=== PATIENT | male | born 1975 | race Caucasian/White ===

== ENCOUNTER 2017-06-03 17:53 | Emergency (ER) | payer SELFPAY ==
[~2017-06-03] VITALS: Ht 162.6 cm; Wt 68.0 kg
[2017-06-03 18:04] VITALS: BP 123/76
[2017-06-03] MEDS ORDERED: cefTRIAXone 1,000 MG in LIDOCAINE MPF 1% - **ER/OR** 2.1 ML IM ONE (18:45)
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
--- NOTE | 2017-06-03 19:05 | NUR ---
ALEJANDRO WILLIS NOTIFIED OF URINE COLLECTED FOR TEST
[2017-06-03 19:32] VITALS: BP 100/89
--- NOTE | 2017-06-03 19:32 | NUR ---
Patient discharged with v/s stable PER DR. MATHEWS. Written and verbal after care instructions given and explained PER DR MATHEWS. Patient alert, oriented and verbalized understanding of instructions. Ambulatory with steady gait. All questions addressed prior to discharge by Dr. Mathews. ID band removed. Patient advised to follow up with PMD. Rx of given. Doxycycline 100 mg and levaquin 500 mg. Patient educated on indication of medication including possible reaction and side effects. Opportunity to ask questions provided and answered.
[2017-06-06 06:28] LABS: CHLAMYDIA TRACHOMATIS AMP DNA Negative (Negative)
== END 2017-06-03 19:32 | disposition home or self-care (01) ==
LOC: MED 17:53
DX: A64 Unspecified sexually transmitted disease (principal)
CPT/HCPCS: 36415; 96372; 99283; J0696; J2001; 87491

== ENCOUNTER 2018-12-28 19:06 | Emergency (ER) | payer SELFPAY ==
[~2018-12-28] VITALS: Ht 167.6 cm; Wt 63.5 kg
[2018-12-28 19:10] VITALS: BP 120/68
--- NOTE | 2018-12-28 19:16 | NUR ---
Patient ambulated to bed 8 with family. RN evaluating patient at bedside.
--- NOTE | 2018-12-28 19:30 | NUR ---
Dr. Abacra evaluating patient at bedside.
--- NOTE | 2018-12-28 19:33 | NUR ---
43/M PRESENTS TO ED, C/O BUMP ON L POST AURICULAR REGION, REPORTS PAIN ON BL SIDES OF NECK. ALSO C/O EPIGASTRIC PAIN, X1 DAY. REPORTS VOMITING. PT AWAKE AND ALERT, SKIN NORMAL WARM AND DRY, RR EVEN AND UNLABORED. LUNG SOUNDS CLEAR BL. BS HYPOACTIVE X4, ABD SOFT FLAT TENDER. DENIES MED HX OR RX.
[2018-12-28] MEDS ORDERED: ONDANSETRON 4 MG ODT PO ONE (19:35)
[2018-12-28] MEDS ORDERED: KETOROLAC 60 MG/2 ML VIAL IM ONE (19:35)
[2018-12-28] MEDS ORDERED: DICYCLOMINE HCL LIQUID 20 MG, ALUMINUM HYD/MAG/SIMETHICONE 30 ML, LIDOCAINE VISCOUS 2% ... PO ONE ×3 (20:15)
--- NOTE | 2018-12-28 20:19 | NUR ---
PT REPORTS PERSISTENT EPIGASTRIC PAIN DESPITE 60MG TORADOL IM, DR WEBB MADE AWARE, ADMINISTERED GI COCKTAIL ORDERED WITH EDUCATION, PT VERBALIZED UNDERSTANDING, TOLERATED MED WELL. ALL NEEDS MET
--- NOTE | 2018-12-28 21:20 | NUR ---
PT REPORTS RELIEF IN EPIGASTRIC PAIN, 0/10 AT THIS TIME.
[2018-12-28 21:21] VITALS: BP 105/58
--- NOTE | 2018-12-28 21:24 | NUR ---
Patient discharged with v/s stable. Written and verbal after care instructions given and explained. Patient alert, oriented and verbalized understanding of instructions. Ambulatory with steady gait. All questions addressed prior to discharge. ID band removed. Patient advised to follow up with PMD. Rx of PRILOSEC, ZOFRAN given. Patient educated on indication of medication including possible reaction and side effects. Opportunity to ask questions provided and answered.
== END 2018-12-28 21:24 | disposition home or self-care (01) ==
LOC: MED 19:06
DX: R10.13 Epigastric pain (principal); R11.2 Nausea with vomiting, unspecified; R59.1 Generalized enlarged lymph nodes; H92.02 Otalgia, left ear; F17.200 Nicotine dependence, unspecified, uncomplicated
CPT/HCPCS: 96372; 99283; J1885; Q0162